=== PATIENT | female | born 1940 | race Caucasian/White ===

== ENCOUNTER → 2016-07-10 | Outpatient (CLI) | payer MEDICARE, BC ==
[~2016-07-10] MED LIST: ADVAIR 250/28 DISKU1 IH; AMLODIPINE5 MG PO; ASPIRIN E.C. 8181 MG PO; CALCIUM 600 PLU1 TAB PO; COMBIVENT INH14.7 GM IH; FEXOFENADINE180 MG PO; FISH OIL1000 MG PO; HYZAAR 12.5 MG-1 TAB PO; HYZAAR 50-12.1 UDTAB PO; LEVOTHYROXIN0.088 MG PO; METFORMIN1000 MG PO; METFORMIN500 MG PO; METOPROLOL50 MG PO; MULTIVITAMIN1 CTB PO; OSTEO-BI-FLEX 21 TAB PO; POTASSIUM99 M2 PO; PRILOSEC 20MG20 MG PO; SIMVASTATIN40 MG PO; SINGULAIR10 MG PO; SUPER B COMPLEX1 TA2 PO; VITAMIN C500 MG PO; VITAMIN D31000 IU PO
== END ==
LOC: MC.RAD 11:20
DX: Z12.31 Encounter for screening mammogram for malignant neoplasm of breast (principal); N64.89 Other specified disorders of breast